=== PATIENT | female | born 1950 | race Caucasian/White ===

== ENCOUNTER → 2023-10-12 10:59 | Outpatient (REF) | payer MEDICARE, OTHER, SELFPAY | LOC: HWRCS 10:59 | PROVIDERS: ATTENDING PHYSICIAN Internal Medicine | DX: R01.1 Cardiac murmur, unspecified (principal); M25.561 Pain in right knee; M25.562 Pain in left knee | CPT/HCPCS: 73564; 93306 ==

== ENCOUNTER 2023-12-24 21:05 | Observation (INO) | payer MEDICARE, OTHER, SELFPAY ==
[2023-12-24] VITALS (7 sets, daily range): BP systolic 151–187; BP diastolic 77–91; BMI 22.9
--- NOTE | 2023-12-24 18:16 | ED.CVA ---
History of Present Illness
<Wolfgang Lockett DO - Last Filed: 12/24/23 18:16>
General
Chief Complaint: CVA/TIA Symptoms
Time Seen by Provider: 12/24/23 18:10
<Corky Rooney PA-C - Last Filed: 12/24/23 20:58>
General
Source: patient and spouse
Onset of Stroke Symptoms
Onset of symptoms known: Yes
Date of onset of symptoms: 12/24/23
Time of onset of symptoms: 16:15
History of Present Illness
History of Present Illness:
73 year old female with no significant past medical history presenting to the emergency department for evaluation after she was in the middle of her physical therapy appointment on cardio equipment when she all of a sudden stopped the cardio but
without realizing she had stopped and seemed very confused. Per reports the physical therapy team was asking the patient questions and she was unable to answer them appropriately. Patient states she has no recollection of these events. Spouse
states that they sat her down and took her blood pressure which was noted to be very elevated for the patient as high as 170/91. Patient's blood pressure normally runs low. At time of my evaluation patient reports she still feels as if she is
having a harder time thinking but is answering questions appropriately and denies any headache, visual changes, focal weakness or numbness, chest pain, shortness of breath, palpitations, fevers or infectious symptoms or any other concerns. No
history of similar. Social history and family history noncontributory.
Past History
<Wolfgang Lockett DO - Last Filed: 12/24/23 18:16>
Past History
ED Past Medical History: Asthma and Other (MVP)
ED Past Surgical History: Gynecological and Other
Social History
Tobacco: Non-smoker
Personal:
Living: with family
Employment: Employed
<Corky Rooney PA-C - Last Filed: 12/24/23 20:58>
Social History
Alcohol: None
Drug: None
Review of Systems
<Corky Rooney PA-C - Last Filed: 12/24/23 20:58>
Review of Systems
All Other Systems: ROS reviewed and negative except as documented in HPI and ROS
Phy Exam
<Corky Rooney PA-C - Last Filed: 12/24/23 20:58>
Physical Exam
Physical Exam:
GENERAL: Alert , in no apparent distress
EYE: conjunctiva clear
NECK: Supple, no significant adenopathy.
ENT: o/p clr, mmm.
CARDIAC: Regular rate and rhythm
LUNGS: Clear breath sounds bilaterally, no acute respiratory distress, no wheezes/rales/rhonchi
NEUROLOGICAL: Alert and oriented x 3, ambulates with steady gait, moves all extremities, no aphasia, no dysarthria, no dysmetria, sensation grossly intact to light touch
SKIN: Warm and dry, skin intact.
MUSCULOSKELETAL: well perfused.
PSYCH: Normal and appropriate interaction.
Scores
<Corky Rooney PA-C - Last Filed: 12/24/23 20:58>
NIH Stroke Score
Level of Consciousness: 0 - Alert
LOC Questions: 0-Answers both correctly
LOC Commands: 0-Performs both correctly
Best Horizontal Gaze: 0-Normal
Visual Vargas: 0=Normal, no visual loss
Facial Palsy: 0=Normal, symmetrical
Motor - Right Arm: 0=No drift 10 seconds
Motor - Left Arm: 0=No drift 10 seconds
Motor - Right Le-No drift 5 seconds
Motor - Left Le-No drift 5 seconds
Limb Ataxia: 0-Absent
Sensation: 0-Normal
Best Language: 0-No aphasia
Dysarthria: 0-Normal
Extinction and Inattention: 0-No abnormality
Total Score:: 0
Heart Failure Risk
Heart Failure Risk Score: Not Applicable
Heart Score for Chest Pain Patients
STEMI patient?: Not applicable
Withdrawal Assessment of Alcohol
Withdrawal Assessment Completed?: Not applicable
Course
<Wolfgang Mari Cathryn, DO - Last Filed: 12/24/23 18:16>
Orders/Labs/Results
Orders:
Orders
12/24/23 17:53
Electrocardiogram (*1) Urgent
Reason for Study: Hypertension, Benign
EKG- Treatment ONCE
12/24/23 18:[address] [CT Head W/o Iv Contrast] Stat
Comment:
Reason For Exam: CVA/TIA, confusion
12/24/23 18:10
Complete Blood Count/With Diff Urgent
Comprehensive Metabolic Panel Urgent
Troponin I Urgent
12/24/23 20:45
Admit/Transfer Patient As Directed
Co-Sign Provider:
Level of Care: Observation services
Assign to:: Telemetry
Physician / Group: shaggy
Diagnosis: hypertensive encephelopathy
Reason for Telemetry: Arrhythmia
Date to Stop Telemetry: 12/27/23
Time to Stop Telemetry: 11:00
12/24/23 20:46
Code Status As Directed
Resuscitation Status: Full Code
12/27/23 11:00
DC Protocol for Telemetry ONCE
Abnormal Lab Results
12/24/23 12/24/23
18:10 18:18
MCH 31.3 H pg
(27.0-31.0)
Carbon Dioxide 31 H mmol/L
(22-30)
BUN 22 H mg/dl
(7-17)
Glucose 102 H mg/dl
(70-99)
AST 39 H U/L
(14-36)
ALT 39 H U/L
(0-35)
POC Glucose 107 H mg/dl
(70-99)
12/24/23 18:10
12/24/23 18:10
Vital Signs
Initial and Last Documented VS:
Initial Vital Signs
Temp Pulse Resp BP Pulse Ox
98.4 F 70 18 187/91 96
12/24/23 17:48 12/24/23 17:48 12/24/23 17:48 12/24/23 17:48 12/24/23 17:48
Last Documented Vital Signs
Temp Pulse Resp BP Pulse Ox
98.4 F 69 18 167/80 97
12/24/23 17:48 12/24/23 20:15 12/24/23 20:15 12/24/23 20:15 12/24/23 20:15
<Corky Rooney PA-C - Last Filed: 12/24/23 20:58>
Orders/Labs/Results
Orders:
Orders
12/24/23 17:53
Electrocardiogram (*1) Urgent
Reason for Study: Hypertension, Benign
EKG- Treatment ONCE
12/24/23 18:[address] [CT Head W/o Iv Contrast] Stat
Comment:
Reason For Exam: CVA/TIA, confusion
12/24/23 18:10
Complete Blood Count/With Diff Urgent
Comprehensive Metabolic Panel Urgent
Troponin I Urgent
12/24/23 20:45
Admit/Transfer Patient As Directed
Co-Sign Provider:
Level of Care: Observation services
Assign to:: Telemetry
Physician / Group: shaggy
Diagnosis: hypertensive encephelopathy
Reason for Telemetry: Arrhythmia
Date to Stop Telemetry: 12/27/23
Time to Stop Telemetry: 11:00
12/24/23 20:46
Code Status As Directed
Resuscitation Status: Full Code
12/27/23 11:00
DC Protocol for Telemetry ONCE
Abnormal Lab Results
12/24/23 12/24/23
18:10 18:18
MCH 31.3 H pg
(27.0-31.0)
Carbon Dioxide 31 H mmol/L
(22-30)
BUN 22 H mg/dl
(7-17)
Glucose 102 H mg/dl
(70-99)
AST 39 H U/L
(14-36)
ALT 39 H U/L
(0-35)
POC Glucose 107 H mg/dl
(70-99)
12/24/23 18:10
12/24/23 18:10
Vital Signs
Initial and Last Documented VS:
Initial Vital Signs
Temp Pulse Resp BP Pulse Ox
98.4 F 70 18 187/91 96
12/24/23 17:48 12/24/23 17:48 12/24/23 17:48 12/24/23 17:48 12/24/23 17:48
Last Documented Vital Signs
Temp Pulse Resp BP Pulse Ox
98.4 F 69 18 167/80 97
12/24/23 17:48 12/24/23 20:15 12/24/23 20:15 12/24/23 20:15 12/24/23 20:15
Peer Financial Counselor consulted with Physician
Peer Financial Counselor consulted with physician?: Yes
Name of Physician Consulted: Cathryn
<Corky Rooney PA-C - Last Filed: 12/24/23 20:58>
MDM/Problems Addressed
Differential Diagnosis Includes:
Hypertensive encephalopathy, transient global amnesia, less likely CVA/TIA
MDM/Problems Addressed:
73-year-old female presenting emergency department for evaluation of transient confusion, found to be hypertensive at her physical therapy office and remains hypertensive on arrival to the ER. Patient is answering questions appropriately and has no
focal neurologic deficits on exam. She is completely asymptomatic at this time. I am less suspicious for CVA so no stroke alert was called. I suspect hypertensive encephalopathy is the most likely reasoning. Will discuss case with neurology.
Suspect patient may need to be observed overnight. Labs and head CT ordered.
<Corky Rooney PA-C - Last Filed: 12/24/23 20:58>
*Radiology
Radiology exam reviewed: radiology read reviewed
*Pulse Oximetry
Patient hypoxic: no
*EKG
Interpreted by ED Provider?: Yes
Comparison EKG: no changes
Heart Rate: 71
Rate: normal
Rhythm: sinus
[place]: normal axis
Ischemia: no ischemia
*Data Communications Engineer Interpretation
Rate: normal
Rhythm: sinus
*Critical Care Note
Total Time (30-74mins, 75-104mins- exclusive of procedures): Not Applicable
<Corky Rooney PA-C - Last Filed: 12/24/23 20:58>
Patient Management
Discussion with other providers: Hospitalist and Middleware Architect
Escalation/DeEscalation of care consider admission/obs:
Case discussed with neurology. Agrees plan and workup. Does agree that patient may need to be observed overnight for encephalopathy. At present time is okay with permissive hypertension but his blood pressure does go greater than [address] head is unremarkable. Hospitalist team is aware and accepts for continued evaluation and treatment of suspected hypertensive encephalopathy.
ED Attending Note
<Wolfgang Lockett DO - Last Filed: 12/24/23 18:16>
ED Attending Note
Patient seen and examined by attending physician: Yes
I performed the substantive portion of visit, reviewed & personally made and approve the management plan that is documented in note by myself or CINTHYA.: Yes
I performed a history and physical exam of patient and discussed management with resident, I reviewed resident's note and agree with documented findings and plan of care.: Yes
ED Attending Note:
I evaluated patient at bedside. The patient has a period of amnesia that lasted around an hour starting around 4 PM. She currently has a stroke scale of 0 and GCS of 15.
-
Portions of this chart may have been created with voice recognition software.� Occasional wrong word or��sound alike� substitutions may have occurred due to the inherent limitations of voice recognition software.
Discharge Plan
Departure
Patient Disposition: Admit
Date of Disposition: 12/24/23
Time of Disposition: 20:05
Presentation/result/management discussed w/ accepting MD/DO: Hospitalist
Discharge Problem:
Hypertensive encephalopathy
Prescriptions:
No Action
Theragen Tablet
1 tab PO DAILY
calcium carbonate [Calcium 600] 600 mg calcium (1,500 mg) Tablet
600 mg PO BID
zoledronic tzzh-xhbdpeil-kmljf [Reclast] 5 mg/100 mL Piggyback
5 mg IV [id number]
oregano oil 1,500 mg Capsule
1,500 mg PO DAILY
Kelp (iodine) 150 mcg Tablet
150 mcg PO DAILY
Fish Oil [phone] mg Capsule,Delayed Release(Dr/Ec)
4 cap PO DAILY
magnesium oxide 400 mg magnesium Tablet
400 mg PO HS
choline-silicon 120-6 mg/6 drops Drops
6 drp PO BID
Maqui Lara tablet
1 tab PO DAILY
Unknown Eye Drops drops
1 drp BOTH EYES DAILYPRN PRN (Reason: dry eyes)
Referrals:
Niharika Todd MD [Family Provider] -
Interventions
Interventions:
*Risk Screen - Suicide Last Done: 12/24/23 18:14
*General Assessment Last Done: 12/24/23 18:14
*Neglect/Abuse Screening Last Done: 12/24/23 18:14
ED- Fall Risk Assessment Last Done: 12/24/23 19:01
ED- Cardiac Assessment Last Done: 12/24/23 18:14
ED- Neurological Assessment Last Done: 12/24/23 18:59
ED- Pulmonary Assessment Last Done: 12/24/23 18:14
ED Swallowing Screen Last Done: 12/24/23 18:59
Discharge Date and Time
Print Language: SAMI
[2023-12-24 18:20] LABS: Glucose - Point of Care 107 mg/dl (70-99)
[2023-12-24 18:21] LABS: % Basophils 0.3 % (0-2); % Eosinophils 1.2 % (0-6); % Immature Granulocytes 0.5 % (0-0.5); % Lymphocytes 28.5 % (20.5-51.1); % Monocytes 5.3 % (1.7-9.3); % Neutrophils 64.2 % (42.2-75.2); Absolute Eosinophils 0.1 10^3/uL (0-0.7); Absolute Lymphocytes 1.8 10^3/uL (1.2-3.4); Absolute Monocytes 0.3 10^3/uL (0.1-0.6); Absolute Neutrophils 4.1 10^3/uL (1.4-6.5); Hematocrit 44.5 % (37.0-47.0); Hemoglobin 14.7 g/dL (12.0-16.0); Mean Corpuscular Hgb 31.3 pg (27.0-31.0); Mean Corpuscular Volume 94.7 fL (81.0-99.0); Mean Platelet Volume 9.9 fL (7.4-10.4); Nucleated Red Blood Cells % 0 %; Platelet Count 200 10^3/uL (130-400); Red Cell Dist. Width 12.6 % (11.5-14.5); White Blood Cell Count 6.4 10^3/uL (4.8-10.8)
[2023-12-24 19:04] LABS: ALT (SGPT) 39 U/L (0-35); AST (SGOT) 39 U/L (14-36); Albumin 4.7 g/dl (3.5-5.0); Alkaline Phosphatase 54 U/L (38-126); Blood Urea Nitrogen 22 mg/dl (7-17); Calcium 10.1 mg/dl (8.4-10.2); Carbon Dioxide 31 mmol/L (22-30); Chloride 102 mmol/L (98-107); Glucose 102 mg/dl (70-99); Potassium 3.9 mmol/L (3.5-5.1); Sodium 139 mmol/L (135-145); Total Bilirubin 1.1 mg/dl (0.2-1.3); Total Protein 7.7 g/dl (6.3-8.2); eGFR 59.86
[2023-12-24 19:05] LABS: Troponin I < 0.012 ng/ml
--- NOTE | 2023-12-24 20:49 | HPS.HSE ---
Family Physician
-
Family Physician: Niharika Todd
Chief Complaint
-
confusion
History of Present Illness
73-year-old female past medical history of asthma, endometrial cancer status post hysterectomy, kidney stones, Lyme's disease, osteoporosis, presenting with acute onset of confusion while at a physical therapy appointment. He was on cardio
equipment when all of a sudden she stopped and seemed very confused. Physical therapist team asked the patient questions and she was unable to answer them. Patient has no recollection of this. Spouse states that they sat her down and took her
blood pressure was found to be as high as 170/91. Her blood pressure normally runs low.
Per ER physician patient reports that she was having a hard time thinking but was answering questions appropriately. She still continues to feel as if she is a bit slow to come to her thoughts. She denied headache, visual changes, focal weakness
or numbness, chest pain, shortness of breath, palpitations, fevers or any other symptoms. No episodes like this ever happened before.
She states her blood pressure is normally around 105 systolic but can go up to 140s to 150s when she is in her doctor's office. She was never on high blood pressure medicine.
She drinks alcohol occasionally. She denies smoking.
Medical History
Past Medical History
Past Medical History: Reports Other (asthma, endometrial cancer status post hysterectomy, kidney stones, Lyme's disease, osteoporosis)
Past Surgical History: Reports None
Social History
Tobacco: Non-smoker
Alcohol: Occasional
Drug: None
Family History
Family History: Not pertinent
Allergies / Home Medications
Allergies reflects when Allergies were last updated in [facility].
Home Medications with original date entered in [facility]
Allergy/Medication List:
Allergies
Allergy/AdvReac Type Severity Reaction Status Date / Time
Dexbrompheniramine Allergy Unknown pronounced Verified 12/24/23 17:48
[From Drixoral Allergy Sinus] fatigue
pseudoephedrine HCl Allergy Unknown pronounced Verified 12/24/23 17:48
[From Drixoral Allergy Sinus] fatigue
adhesive tape Allergy Rash Verified 12/24/23 17:48
alendronate sodium Allergy BONE AND Verified 12/24/23 17:48
[From Fosamax] JOINT PAIN
thimerosal Allergy inflamation Verified 12/24/23 17:48
of eyes
triclosan Allergy Rash Verified 12/24/23 17:48
Home Medications
Maqui Lara 1 tab PO DAILY 12/24/23
Unknown Eye Drops 1 drp BOTH EYES DAILYPRN PRN dry eyes 12/24/23
calcium carbonate (Calcium 600) 600 mg PO BID 12/24/23
choline 120 mg-silicon 6 mg/6 drops oral 6 drp PO BID 12/24/23
iodine 150 mcg tablet (Kelp (iodine)) 150 mcg PO DAILY 12/24/23
magnesium oxide 400 mg PO HS 12/24/23
omega 7-yny-hei-fish oil 300 mg-108 mg-162 mg-600 mg capsule,delay rel (Fish Oil) 4 cap PO DAILY 12/24/23
oregano oil 1,500 mg capsule 1,500 mg PO DAILY 12/24/23
therapeutic multivitamin 1 tab PO DAILY 12/24/23
zoledronic acid 5 mg/100 mL in mannitol 5 %-water intravenous piggybck (Reclast) 5 mg IV [id number] 12/24/23
Review of Systems
-
History Source: Patient
A 12 point ROS was completed and negative except as noted: Yes
Constitutional: Reports No Symptoms
EENT: Reports No Symptoms
Respiratory: Reports No Symptoms
Cardiac: Reports No Symptoms
Abdomen/GI: Reports No Symptoms
: Reports No Symptoms
Musculoskeletal: Reports No Symptoms
Skin: Reports No Symptoms
Neurological: Reports No Symptoms
Endocrine: Reports No Symptoms
Hematologic/Lymphatic: Reports No Symptoms
Psych: Reports No Symptoms
Physical Exam
Vital Signs
Vital Signs
Temp Pulse Resp BP Pulse Ox
98.4 F 69 18 167/80 97
12/24/23 17:48 12/24/23 20:15 12/24/23 20:15 12/24/23 20:15 12/24/23 20:15
Physical Exam
General: Well Developed, Well Nourished and No Apparent Distress
HEENT: NormoCephalic, Moist mucous membranes and Atraumatic
Respiratory: Clear
Cardiac: S1/S2 and Regular Rhythm; No Murmur or Rub
GI: Soft, Non Tender, Non Distended and Normal Bowel Sounds; No Organomegaly
Rectal: Deferred by Provider
Musculoskeletal: No Clubbing, No Cyanosis and No Edema
Skin: No Rash
Neuro: Nonfocal/grossly intact
Laboratory Results
-
12/24/23 18:10
12/24/23 18:10
Laboratory Results
Total Bilirubin 1.1 mg/dl (0.2-1.3) 12/24/23 18:10
AST 39 U/L (14-36) H 12/24/23 18:10
ALT 39 U/L (0-35) H 12/24/23 18:10
Alkaline Phosphatase 54 U/L (38-126) 12/24/23 18:10
Troponin I < 0.012 ng/ml 12/24/23 18:10
Data Reviewed
-
Lab Data: Labs Reviewed by me
Old Records: Reviewed
Impression/Plan
-
IMPRESSION:
PLAN:
# Hypertensive encephalopathy, now improved
-Blood pressure here high as 187/91
-Neurological examination unremarkable stroke scale of 0, GCS of 15
-CT head shows no acute intracranial abnormality
-As needed labetalol for blood pressure greater than 180 systolic
-Check MRI brain
-Neurology consulted
Endometrial cancer status post hysterectomy
Asthma
History of kidney stones
History of Lyme's disease
Osteoporosis
Full code
DVT prophylaxis�SCDs
Regular diet
--- NOTE | 2023-12-24 22:30 | PTCARENOTE ---
Received pt from ED via stretcher. Pt ambulated to bed with standby assist. AAOx3. No complaints of pain. NIH stroke scale performed, result=0. Assessed and oriented to room. quality control engineer placed. Pt verbalized understanding of call calvillo. Call
calvillo within close reach. Pt requested increased dose of magnesium, RODENT CONTROL WORKER made aware, new order provided, see MAR. Will continue to monitor.
[2023-12-25] MEDS: MAGNESIUM OXIDE 500 MG PO (00:46)
[2023-12-25 03:09] VITALS: BP 160/88
[2023-12-25 06:29] LABS: % Basophils 0.4 % (0-2); % Eosinophils 1.5 % (0-6); % Immature Granulocytes 0.4 % (0-0.5); % Lymphocytes 37.9 % (20.5-51.1); % Monocytes 7.1 % (1.7-9.3); % Neutrophils 52.7 % (42.2-75.2); Absolute Eosinophils 0.1 10^3/uL (0-0.7); Absolute Lymphocytes 2.1 10^3/uL (1.2-3.4); Absolute Monocytes 0.4 10^3/uL (0.1-0.6); Absolute Neutrophils 2.9 10^3/uL (1.4-6.5); Hematocrit 40.4 % (37.0-47.0); Hemoglobin 13.4 g/dL (12.0-16.0); Mean Corp Hgb Conc. 33.2 g/dL (33.0-37.0); Mean Corpuscular Hgb 31.2 pg (27.0-31.0); Mean Corpuscular Volume 94.2 fL (81.0-99.0); Mean Platelet Volume 9.9 fL (7.4-10.4); Nucleated Red Blood Cells % 0 %; Platelet Count 167 10^3/uL (130-400); Red Blood Cell Count 4.29 10^6/uL (4.20-5.40); Red Cell Dist. Width 12.7 % (11.5-14.5); White Blood Cell Count 5.5 10^3/uL (4.8-10.8)
[2023-12-25 06:48] LABS: ALT (SGPT) 31 U/L (0-35); AST (SGOT) 30 U/L (14-36); Albumin 3.8 g/dl (3.5-5.0); Alkaline Phosphatase 46 U/L (38-126); Blood Urea Nitrogen 17 mg/dl (7-17); Carbon Dioxide 26 mmol/L (22-30); Chloride 107 mmol/L (98-107); Estimated Creatinine Clearance 53 ml/min; Glucose 93 mg/dl (70-99); Potassium 3.7 mmol/L (3.5-5.1); Sodium 139 mmol/L (135-145); Total Bilirubin 0.9 mg/dl (0.2-1.3); Total Protein 6.4 g/dl (6.3-8.2); eGFR > 60.00
[2023-12-25 07:00] VITALS: BP 108/72
[2023-12-25] MEDS: OSCAL CAL 500 500 MG PO (08:21)
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
[2023-12-25] MEDS: ASPIR LOW (ENTERIC COATED) 81 MG PO (09:05)
[2023-12-25 09:28] LABS: HDL Cholesterol 65 mg/dl; LDL Cholesterol, Calculated 184 mg/dl; Total Cholesterol 270 mg/dl (50-199); Triglyceride 109 mg/dl (10-149); Very Low Density Lipoprotein 21 mg/dl (0-30)
[2023-12-25 09:47] LABS: TSH Reflex To Free T4 6.54 uIU/ml (0.47-4.68)
[2023-12-25 09:51] LABS: Ferritin 64.8 ng/ml (11.1-264.0)
[2023-12-25 10:16] LABS: Glycohemoglobin (HgbA1c) 5.1 % (4.0-5.6)
[2023-12-25 10:22] LABS: Folate > 20.0 ng/ml (2.76-20); Vitamin B12 524 pg/ml (239-931)
[2023-12-25 10:39] LABS: Free T4 0.89 ng/dl (0.78-2.19)
--- NOTE | 2023-12-25 10:49 | CM ---
Patient seen at bedside. Patient states that she lives with her in a 2 story home. Patient plan is to return home with no needs. Patient PCP is Dr. Todd and she uses [facility] her [facility] needs. Patient is here as OBS/WYNN and CM
reviewed form and patient to review with . Patient plan is home with no needs. Patient is independent of ADL's and IADL's prior to admission. CM will continue to follow for discharge planning needs.
Plan; home with no needs vs home with VN
[2023-12-25 11:00] VITALS: BP 141/76
[2023-12-25 15:00] VITALS: BP 139/80
--- NOTE | 2023-12-25 17:21 | W.DS.TRANS ---
DC Summary - Surgery Scheduler
-
Discharge Instructions:
Discharge Diagnosis/Procedures Hypertensive urgency
TIA?
Subclinical hypothyroidism
Diet Low Cholesterol
Blood Work TSH, Free T4, Lipid profile in 4 weeks
Instructions:
Stand-Alone Forms:
Changes to Home Medications: Yes
Discharge Medications:
DC Medications w/original date entered in [facility]
Maqui Lara 1 tab PO DAILY Supplement 12/24/23
Unknown Eye Drops 1 drp BOTH EYES DAILYPRN PRN dry eyes 12/24/23
calcium carbonate (Calcium 600) 600 mg PO BID Supplement 12/24/23
choline 120 mg-silicon 6 mg/6 drops oral 6 drp PO BID Supplement 12/24/23
iodine 150 mcg tablet (Kelp (iodine)) 150 mcg PO DAILY Supplement 12/24/23
magnesium oxide 400 mg PO HS Electrolyte Repletion 12/24/23
omega 3-smk-zon-fish oil 300 mg-108 mg-162 mg-600 mg capsule,delay rel (Fish Oil) 4 cap PO DAILY Supplement 12/24/23
oregano oil 1,500 mg capsule 1,500 mg PO DAILY Supplement 12/24/23
therapeutic multivitamin 1 tab PO DAILY Supplement 12/24/23
zoledronic acid 5 mg/100 mL in mannitol 5 %-water intravenous piggybck (Reclast) 5 mg IV [id number] osteoporosis 12/24/23
amlodipine 2.5 mg tablet 2.5 mg PO DAILY #30 tabs 12/25/23
aspirin 81 mg tablet,delayed release 81 mg PO DAILY #30 tabs 12/25/23
atorvastatin 20 mg tablet (Lipitor) 20 mg PO DAILY #30 tabs 12/25/23
Home Medication Changes
Aspirin, Lipitor, Amlodipine initiated
Pending Results: No
== END 2023-12-25 18:40 | disposition home or self-care (01) ==
LOC: 3 WEST ACU 21:05
PROVIDERS: Student in an Organized Health Care Education/Training Program; ADMITTING PHYSICIAN Hospitalist; ATTENDING PHYSICIAN Internal Medicine; CONSULT PHYSICIAN Psychiatry & Neurology Neurology; EMERGENCY PHYSICIAN Emergency Medicine; FAMILY PHYSICIAN Internal Medicine
DX: I16.0 Hypertensive urgency (principal); R41.0 Disorientation, unspecified; E03.9 Hypothyroidism, unspecified; J45.909 Unspecified asthma, uncomplicated; I10 Essential (primary) hypertension; M81.0 Age-related osteoporosis without current pathological fracture; I34.0 Nonrheumatic mitral (valve) insufficiency; E78.5 Hyperlipidemia, unspecified; E23.0 Hypopituitarism; E22.1 Hyperprolactinemia; G93.2 Benign intracranial hypertension; Z85.42 Personal history of malignant neoplasm of other parts of uterus; Z90.710 Acquired absence of both cervix and uterus; Z87.442 Personal history of urinary calculi; Z88.8 Allergy status to other drugs, medicaments and biological substances; Z82.3 Family history of stroke; Z82.0 Family history of epilepsy and other diseases of the nervous system; Z87.19 Personal history of other diseases of the digestive system
CPT/HCPCS: 70450; 70551; 80053; 80061; 82607; 82728; 82746; 82962; 83036; 84439; 84443; 84484; 85025; 93005; 99285

== ENCOUNTER → 2024-01-07 08:50 | Outpatient (REF) | payer MEDICARE, OTHER, SELFPAY | LOC: HWRAD 08:50 | PROVIDERS: ATTENDING PHYSICIAN Internal Medicine | DX: G45.9 Transient cerebral ischemic attack, unspecified (principal) | CPT/HCPCS: 93880 ==

== ENCOUNTER 2024-03-04 15:51 | Emergency (ER) | payer MEDICARE, OTHER, SELFPAY ==
--- NOTE | 2024-03-04 16:17 | ED.CVA ---
History of Present Illness
General
Chief Complaint: CVA/TIA Symptoms
Source: patient and spouse
Exam Limitations: none
Time Seen by Provider: 03/04/24 16:04
Onset of Stroke Symptoms
Onset of symptoms known: Yes
Date of onset of symptoms: 03/04/24
Time of onset of symptoms: 14:30
Time pt last seen normal is known: Yes
Date last time pt seen normal: 03/04/24
Time last time pt seen normal: 14:00
History of Present Illness
History of Present Illness:
The patient is a very pleasant 73-year-old female with a past medical history of high blood pressure who reports that she was at the physical therapy center exercising prior to arrival. Patient reports that she was observed to be confused, not
knowing where she was or why she was there. The patient reports this confusion lasted 10 to 15 minutes and is now completely resolved. Patient was noted to have an elevated blood pressure during her symptoms with a systolic blood pressure in the
160s. The patient reports that she had the exact same incident occurred during physical therapy this past December and was kept in the hospital for possible hypertensive encephalopathy and TIA. Patient reports that she has been taking her cholesterol
medicine, blood pressure medication but had stopped her 81 mg of aspirin for 1 week. The patient denies headache and any other symptoms. Her symptoms began at around 2:30 today.
Past History
Past History
ED Past Medical History: Asthma and Other (MVP)
ED Past Surgical History: Gynecological and Other
Social History
Tobacco: Non-smoker
Alcohol: None
Drug: None
Personal:
Living: with family
Employment: Employed
Review of Systems
Review of Systems
Allergies reviewed?: Yes
Other source history: family
All Other Systems: ROS reviewed and negative except as documented in HPI and ROS
Constitutional: Reports no symptoms
EENT: Reports no symptoms
Respiratory: Reports no symptoms
Cardiac: Reports no symptoms
ABD/GI: Reports no symptoms
: Reports no symptoms
Musculoskeletal: Reports no symptoms
Skin: Reports no symptoms
Neurological: Reports other (Confusion, memory loss aware patient was)
Endocrine: Reports no symptoms
Hematologic/Lymphatic: Reports no symptoms
Psychiatric: Reports no symptoms
Phy Exam
Physical Exam
Physical Exam:
Physical Exam
General: no apparent distress, not acutely ill
Neck: supple. no meningeal signs. normal psoterior pharynx
Heart: s1/s2 regular rate and rhythm, no murmur. equal radial pulses.
Lungs: no acute respiratory distress. clear bilaterally
Abdomen: normal bowel sounds. not tender. no CVAT
Neuro: alert and orientedx3. no focal neurological deficits. Cranial nerves equal and symmetric bilaterally. 5 out of 5 strength in all extremities. Normal [id number]. Able to answer all questions appropriately.
Skin: no rash
Psychiatric: well kept. interactive and cooperative
Extremities: no edema. no calf tenderness. negative homans. good distal pulses
Scores
NIH Stroke Score
Level of Consciousness: 0 - Alert
LOC Questions: 0-Answers both correctly
LOC Commands: 0-Performs both correctly
Best Horizontal Gaze: 0-Normal
Visual Vargas: 0=Normal, no visual loss
Facial Palsy: 0=Normal, symmetrical
Motor - Right Arm: 0=No drift 10 seconds
Motor - Left Arm: 0=No drift 10 seconds
Motor - Right Le-No drift 5 seconds
Motor - Left Le-No drift 5 seconds
Limb Ataxia: 0-Absent
Sensation: 0-Normal
Best Language: 0-No aphasia
Dysarthria: 0-Normal
Extinction and Inattention: 0-No abnormality
Total Score:: 0
Course
Orders/Labs/Results
Orders:
Orders
03/04/24 16:12
Electrocardiogram (*1) Urgent
Reason for Study: TIA/Stroke
EKG- Treatment ONCE
03/04/24 16:13
Complete Blood Count/With Diff Urgent
Comprehensive Metabolic Panel Urgent
03/04/24 17:41
Aspirin Chewable [Low Strength Aspirin] 81 mg PO NOW STA
Abnormal Lab Results
03/04/24
16:13
MCH 31.6 H pg
(27.0-31.0)
Calcium 10.5 H mg/dl
(8.4-10.2)
Total Bilirubin 1.9 H mg/dl
(0.2-1.3)
AST 41 H U/L
(14-36)
03/04/24 16:13
03/04/24 16:13
Vital Signs
Initial and Last Documented VS:
Initial Vital Signs
Temp Pulse Ox
98.5 F 98
03/04/24 16:07 03/04/24 16:07
Last Documented Vital Signs
Temp Pulse Resp BP Pulse Ox
98.5 F 87 26 157/84 98
03/04/24 16:07 03/04/24 17:45 03/04/24 17:45 03/04/24 17:00 03/04/24 17:30
MDM/Problems Addressed
Differential Diagnosis Includes:
Transient global amnesia, TIA, hypertensive encephalopathy, hyponatremia
MDM/Problems Addressed:
Patient presents after a brief loss of memory
Chronic conditions affecting care: HTN
Acute Exacerbation and/or Progression of Chronic Illness:
Patient's blood pressure may have become acutely elevated, causing her to have brain ischemia and amnesia
Acute Exacerbation and/or Progression of Chronic Illness: HTN
*Pulse Oximetry
Patient hypoxic: no
*EKG
Interpreted by ED Provider?: Yes
Interpretation: normal
Comparison EKG: no changes
Rate: normal
Rhythm: sinus arrhythmia
[place]: normal axis
Interval: normal interval
QRS Pattern: normal QRS
Ischemia: no ischemia
*Chief Catalyst Operator Interpretation
Rate: normal
Interpretation: normal
Rhythm: sinus
*Critical Care Note
Total Time (30-74mins, 75-104mins- exclusive of procedures): Not Applicable
Data Reviewed
Review of Other/Old Records Reveals: Discharge Summary (Discharge summary reviewed from 12/25/2023 when patient was admitted for hypertensive encephalopathy and found to have confusion)
Source: patient and previous hospital records
Patient Management
Discussion with other providers: Other (Case discussed with Dr. Browne)
Escalation/DeEscalation of care consider admission/obs:
Patient remains well and comfortable appearing without any headache or neurological impairment. Patient just had a workup done in the hospital for same symptoms. Therefore, decision made to hold off on any further imaging in the emergency
department. Dr. Browne recommended that the patient restart her 81 mg of aspirin and consider increasing blood pressure medication. Patient reports that she has gotten some swelling from the amlodipine and would like to be taken off amlodipine.
Decision made to start patient on 50 mg of losartan for blood pressure control and stroke prevention. Patient told to return with any further symptoms at all and understands that it is very important that she follow-up with her primary care doctor
as well as neurology and to return with any weakness, numbness, vision changes, headache or any concerns. Patient very comfortable going home.
ED Attending Note
-
Portions of this chart may have been created with voice recognition software.� Occasional wrong word or��sound alike� substitutions may have occurred due to the inherent limitations of voice recognition software.
Discharge Plan
Departure
Patient Disposition: Home (Routine Discharge)
Date of Disposition: 03/04/24
Time of Disposition: 17:39
Patient with high blood pressure during this ER visit?: Yes
Condition: Good
Covid-19: Not Applicable
Discharge Problem:
Acute alteration in mental status
Instructions: Delirium (confusion), Transient Ischemic Attack (DC), BLOOD PRESSURE
Prescriptions:
New
losartan 50 mg tablet
50 mg PO DAILY Qty: 30 0RF
Discontinued
amlodipine 2.5 mg tablet
2.5 mg PO DAILY Qty: 30 0RF
No Action
therapeutic multivitamin Tablet
1 tab PO DAILY
calcium carbonate [Calcium 600] 600 mg calcium (1,500 mg) Tablet
600 mg PO BID
zoledronic buvw-zejrbado-zsiyq [Reclast] 5 mg/100 mL Piggyback
5 mg IV [id number]
oregano oil 1,500 mg Capsule
1,500 mg PO DAILY
Kelp (iodine) 150 mcg Tablet
150 mcg PO DAILY
Fish Oil [phone] mg Capsule,Delayed Release(Dr/Ec)
4 cap PO DAILY
magnesium oxide 400 mg magnesium Tablet
400 mg PO HS
choline-silicon 120-6 mg/6 drops Drops
6 drp PO BID
Maqui Lara tablet
1 tab PO DAILY
Unknown Eye Drops drops
1 drp BOTH EYES DAILYPRN PRN (Reason: dry eyes)
aspirin 81 mg Tablet,Delayed Release (Dr/Ec)
81 mg PO DAILY Qty: 30 0RF
atorvastatin [Lipitor] 20 mg tablet
20 mg PO DAILY Qty: 30 0RF
Referrals:
Brad Guerrero MD [Active] - (call and schedule an appointment to see within 1 week)
Niharika Todd MD [Family Provider] - (Please call to see in 2-3 days. Please ask your doctor about getting an EEG. This was recommended by neurology)
Activity Restrictions/Additional Instructions:
Stop the amlodipine. Start the losartan. Please try to see your primary care doctor within 2 to 4 days. Restart the aspirin
Interventions
Interventions:
*Risk Screen - Suicide Last Done: 03/04/24 16:05
*General Assessment Last Done: 03/04/24 16:05
*Neglect/Abuse Screening Last Done: 03/04/24 16:05
ED- Fall Risk Assessment Last Done: 03/04/24 16:05
*ED COVID-19 Vaccine History Last Done: 03/04/24 16:05
*Nursing Disposition Last Done: 03/04/24 17:53
ED- Pulmonary Assessment Last Done: 03/04/24 16:05
ED- Neurological Assessment Last Done: 03/04/24 16:05
ED- Cardiac Assessment Last Done: 03/04/24 16:05
ED Swallowing Screen Last Done: 03/04/24 16:19
Discharge Date and Time
Print Language: ICELANDIC
[2024-03-04 16:19] LABS: % Basophils 0.3 % (0-2); % Eosinophils 1.3 % (0-6); % Immature Granulocytes 0.3 % (0-0.5); % Lymphocytes 28.5 % (20.5-51.1); % Monocytes 6.5 % (1.7-9.3); % Neutrophils 63.1 % (42.2-75.2); Absolute Eosinophils 0.1 10^3/uL (0-0.7); Absolute Monocytes 0.5 10^3/uL (0.1-0.6); Absolute Neutrophils 4.3 10^3/uL (1.4-6.5); Hematocrit 41.1 % (37.0-47.0); Hemoglobin 14.1 g/dL (12.0-16.0); Mean Corp Hgb Conc. 34.3 g/dL (33.0-37.0); Mean Corpuscular Hgb 31.6 pg (27.0-31.0); Mean Corpuscular Volume 92.2 fL (81.0-99.0); Mean Platelet Volume 9.9 fL (7.4-10.4); Nucleated Red Blood Cells % 0 %; Platelet Count 189 10^3/uL (130-400); Red Blood Cell Count 4.46 10^6/uL (4.20-5.40); Red Cell Dist. Width 12.8 % (11.5-14.5); White Blood Cell Count 6.9 10^3/uL (4.8-10.8)
[2024-03-04 16:35] LABS: ALT (SGPT) 30 U/L (0-35); AST (SGOT) 41 U/L (14-36); Albumin 4.7 g/dl (3.5-5.0); Alkaline Phosphatase 53 U/L (38-126); Blood Urea Nitrogen 16 mg/dl (7-17); Calcium 10.5 mg/dl (8.4-10.2); Carbon Dioxide 29 mmol/L (22-30); Chloride 102 mmol/L (98-107); Glucose 95 mg/dl (70-99); Sodium 142 mmol/L (135-145); Total Bilirubin 1.9 mg/dl (0.2-1.3); Total Protein 7.4 g/dl (6.3-8.2); eGFR > 60.00
[2024-03-04 17:00] VITALS: BP 157/84
[2024-03-04] MEDS: LOW STRENGTH ASPIRIN 81 MG PO (17:48)
== END 2024-03-04 18:00 | disposition home or self-care (01) ==
LOC: EMR 15:51
PROVIDERS: EMERGENCY PHYSICIAN Emergency Medicine; FAMILY PHYSICIAN Internal Medicine
DX: R41.82 Altered mental status, unspecified (principal); I10 Essential (primary) hypertension
CPT/HCPCS: 99284; 80053; 85025; 93005

== ENCOUNTER → 2024-03-13 11:06 | Outpatient (REF) | payer MEDICARE, OTHER, SELFPAY ==
--- NOTE | 2024-03-13 14:38 | EEG.RPT ---
Electroencephalogram Report
Recording
Date of EE03/13/24
Type of EEG: Routine
Length of EEG recordin mins
Done with Video Recording: Yes
Patient Status: Outpatient
Recording Conditions: Awake
Hyperventilation Performed: Yes
Photic Stimulation Performed: Yes
Report
METHODS
A 21 channel digitized electroencephalogram was performed at [facility]. The 10/20 international system of electrode placement was used. In addition to EEG, the patient was monitored for EKG. The duration of the recording was 66 minutes.
BACKGROUND
During the awake state, with the eyes closed, the background consisted of a normal amplitude, 11-12 Hertz posterior reactive rhythm that attenuated appropriately with eye opening. Beta activity was distributed diffusely with an anterior
predominance. There was a normal anterior-posterior voltage gradient. With eye opening the background activity changed to a low voltage mixture of alpha, beta, and occasional theta range frequencies. There were no significant asymmetries of
background activity noted.
HYPERVENTILATION
Hyperventilation resulted in no slowing of the background activity but no appearance of abnormal activity.
PHOTIC STIMULATION
Photic stimulation using a step-moore increase in photic frequency varying from 1-31 Hertz resulted in driving responses at various frequencies but no appearance of abnormal activity.
ABNORMAL EEG ACTIVITY
None
CLINICAL EVENTS
None
INTERPRETATION AND CLINICAL CORRELATION
This EEG is normal during the awake state as well as during the activation procedures of hyperventilation and photic stimulation. No seizures were noted during the recording. A normal EEG, in itself, does not rule out a diagnosis of epilepsy. If
clinical suspicion for seizure persists, a sleep-deprived and/or prolonged recording may be warranted.
== END ==
LOC: EEG 11:06
PROVIDERS: ATTENDING PHYSICIAN Internal Medicine; FAMILY PHYSICIAN Psychiatry & Neurology Neurology
DX: R41.0 Disorientation, unspecified (principal)
CPT/HCPCS: 95813

== ENCOUNTER → 2024-03-24 09:03 | Outpatient (REF) | payer MEDICARE, OTHER, SELFPAY | LOC: EEG 09:03 | PROVIDERS: ATTENDING PHYSICIAN Psychiatry & Neurology Neurology; FAMILY PHYSICIAN Internal Medicine | DX: G93.40 Encephalopathy, unspecified (principal) | CPT/HCPCS: 95708 ==

== ENCOUNTER → 2024-04-16 11:47 | Outpatient (REF) | payer MEDICARE, OTHER, SELFPAY | LOC: PAVMRI 11:47 | PROVIDERS: ATTENDING PHYSICIAN Psychiatry & Neurology Neurology; FAMILY PHYSICIAN Internal Medicine | DX: G93.40 Encephalopathy, unspecified (principal); M81.0 Age-related osteoporosis without current pathological fracture; N93.8 Other specified abnormal uterine and vaginal bleeding; G45.9 Transient cerebral ischemic attack, unspecified | CPT/HCPCS: 70544; 70549; A9585 ==

== ENCOUNTER → 2024-05-29 15:11 | Outpatient (REF) | payer MEDICARE, OTHER, SELFPAY | LOC: RAD 15:11 | PROVIDERS: ATTENDING PHYSICIAN Internal Medicine Cardiovascular Disease; FAMILY PHYSICIAN Internal Medicine | DX: I10 Essential (primary) hypertension (principal); G45.9 Transient cerebral ischemic attack, unspecified; I77.1 Stricture of artery | CPT/HCPCS: 93923; 93930 ==

== ENCOUNTER → 2025-02-25 07:18 | Outpatient (REF) | payer MEDICARE, OTHER, SELFPAY | LOC: RCS 07:18 | PROVIDERS: ATTENDING PHYSICIAN Internal Medicine Cardiovascular Disease; FAMILY PHYSICIAN Internal Medicine | DX: I10 Essential (primary) hypertension (principal); R09.89 Other specified symptoms and signs involving the circulatory and respiratory systems; G93.40 Encephalopathy, unspecified; I48.0 Paroxysmal atrial fibrillation | CPT/HCPCS: 93017 ==

== ENCOUNTER → 2025-02-26 08:57 | Outpatient (REF) | payer MEDICARE, OTHER, SELFPAY | LOC: RCS 08:57 | PROVIDERS: ATTENDING PHYSICIAN Internal Medicine Cardiovascular Disease; FAMILY PHYSICIAN Internal Medicine | DX: R94.39 Abnormal result of other cardiovascular function study (principal); I10 Essential (primary) hypertension; G45.9 Transient cerebral ischemic attack, unspecified | CPT/HCPCS: 93017; 93350 ==